=== PATIENT | female | born 1980 | race Caucasian/White ===

== ENCOUNTER 2020-12-22 23:11 | Emergency (ER) | payer BC ==
[~2020-12-22] VITALS: Ht 162.6 cm; Wt 63.6 kg
[2020-12-22 23:14] VITALS: BP 150/104
--- NOTE | 2020-12-23 00:45 | NUR ---
Pillow provided and stack of blankets for patient to reposition herself to comfort. Patient requesting a sling. Patient informed that we need MD orders for any treatments and that MD is attending critical patients at this time. Patient states "yes, the frequent flyers". Patient is upset about the time she has waited, nurse charge rn notified. Patient informed she is next to be seen by MD.
--- NOTE | 2020-12-23 01:11 | NUR ---
PT IS UPSET THAT WE ARE SEEING PEOPLE WITH LIFE THREATENING INJURIES BEFORE HER. I ATTEMPTED TO EXPLAIN TO HER THAT HER INJURY IS IMPORTANT JUST NOT LIFE THREATENING BUT SHE IS UPSET AND STATES THIS IS [facility]" AND "I'M NOT WAITING" - PT THEN LEFT. MD AWARE. NO NEW ORDERS.
== END 2020-12-23 01:20 | disposition left against medical advice (07) ==
LOC: ER 23:12
DX: M25.512 Pain in left shoulder (principal); Z53.21 Procedure and treatment not carried out due to patient leaving prior to being seen by health care provider